=== PATIENT | female | born 1990 | race Hispanic/Latino ===

== ENCOUNTER 2016-10-05 11:15 | Emergency (ER) | payer OTHER ==
[~2016-10-05] VITALS: Ht 167.6 cm; Wt 75.7 kg
[2016-10-05] MEDS ORDERED: PREN-8 PO (13:32)
--- NOTE | 2016-10-05 14:14 | Diagnostic Imaging Report ---
INDICATION: Vaginal bleeding. . FINDINGS: There is single live intrauterine fetus in vertex presentation. Placenta is anterior. There is no evidence of abruption or previa. heart rate 160 beats per minute. Cervical length is 4.9 cm. Amniotic fluid index is normal at 13 cm. anatomical survey is normal with three-vessel cord. Biometric measurements are BPD 4.5 cm, head circumference 16.3 cm, abdominal circumference 13.7 cm and femur length 3.2 cm. Estimated weight 2930 g. IMPRESSION: 1. There is a 20 week zero day live intrauterine by ultrasound. Sonographic EDC would be 02/25/2017. 2. Placenta is anterior with no evidence of abruption or previa. Dictated by: Dictated on workstation # [id number]
[2016-10-05 15:35] VITALS: BP 112/62
== END 2016-10-05 14:25 | disposition home or self-care (01) ==
LOC: ED 11:21
DX: O20.9 Hemorrhage in early pregnancy, unspecified (principal); Z3A.19 19 weeks gestation of pregnancy
CPT/HCPCS: 76805; 99282